=== PATIENT | female | born 2000 | race Caucasian/White ===

== ENCOUNTER → 2020-11-01 08:06 | Outpatient (CLI) | payer OTHER, MEDICAID, SELFPAY ==
[2020-11-01 09:04] LABS: Hematocrit 37.9 % (36-46); Hemoglobin 12.3 g/dL (12.0-16.0)
[2020-11-01 09:37] LABS: Hemoglobin A1C% w Est Avg Glu 5.2 % (4.0-6.0)
[2020-11-01 10:34] LABS: GTT (PREG) 1 Hour PP 50gm Dose 124 mg/dL (76-139)
== END ==
PROVIDERS: PCP Family Medicine; Referring Provider Family Medicine; Visit Provider Family Medicine
DX: Z34.03 Encounter for supervision of normal first pregnancy, third trimester (principal); Z3A.28 28 weeks gestation of pregnancy
CPT/HCPCS: 36415; 82950; 83036; 85014; 85018

== ENCOUNTER → 2020-11-03 12:00 | Outpatient (CLI) | payer OTHER, MEDICAID, SELFPAY ==
--- NOTE | 2020-11-03 12:01 | DI.US.S_ITS ---
PROCEDURE: US OB >= 14 WEEKS FETUS INDICATIONS: ANATOMY OUTSIDE/PRIOR DATING DATA: Last menstrual period (LMP): Not available LMP-based estimated date of delivery (KENNEDY): Not available . First dating scan (date and location): This study . Estimated date of delivery (KENNEDY) from first dating scan: 01/05/21 . TECHNIQUE: Real-time scanning was performed of the fetus, with image documentation and biometric measurements. Endovaginal scanning: Not needed COMPARISON: None. FINDINGS: General: A single living intrauterine gestation is present. Presentation: Vertex. Placenta: Placental position is fundal, without previa. Amniotic fluid index: 20.3 cm, normal range is 5-24 cm. heart rate: 150 beats per minute. Maternal cervical canal: 3.5 cm long. Normal lower limit is 2.5 cm. biometrics: Biparietal diameter: 7.6 cm, 30 weeks 4 days Head circumference: 28.9 cm, 31 weeks 6 days Abdominal circumference: 26.2 cm, 30 weeks 3 days Femur length: 6.0 cm, 31 weeks 0 days Estimated gestational age from initial scan: not applicable. Composite gestational age from present scan: 31 weeks 0 days Estimated weight and percentile: 1630 g Measurement variability for biometric dating: +/- 7 days from 14 weeks to 15 weeks 6 days gestation, +/- 10 days from 16 weeks to 21 weeks 6 days gestation, +/- 2 weeks from 22 weeks to 27 weeks 6 days gestation, +/- 3 weeks for 28 weeks gestation or later. weight reference: 4500 g or EFW >90/95% is considered macrosomia or large for gestational age. EFW <10% is small for gestational age. EFW 5% or less is considered intra-uterine growth restriction. Anatomic survey: Neuro: Ventricles are not seen. Deep vertex presentation. Face: Nose and lips, facial profile are normal. Spine: No evidence for spina bifida. Heart: 4-chambered heart is present, with normal ventricular outflow tracts. Diaphragm: Diaphragm is intact. Stomach: Left-sided stomach is present. Kidneys: No hydronephrosis. Normal is less than 5 mm in 2nd trimester, less than 7 mm in 3rd trimester. Cord: 3-vessel cord has orthotopic insertion. Bladder: Normal in size. Extremities: All 4 extremities identified. IMPRESSION: Single living intrauterine gestation. Calcification of the calvarium precludes visualization of the intracranial content. Estimated current gestational age is 31 weeks 0 days and the delivery date is projected to be centered on 01/05/21. Dictated by: Fred Burt M.D. on 11/03/2020 at 13:43 Approved by: Fred Burt M.D. on 11/03/2020 at 13:47
== END ==
PROVIDERS: PCP Family Medicine; Referring Provider Family Medicine; Visit Provider Family Medicine
DX: Z34.03 Encounter for supervision of normal first pregnancy, third trimester (principal); Z3A.31 31 weeks gestation of pregnancy
CPT/HCPCS: 76811

== ENCOUNTER 2020-12-14 11:54 | Outpatient (CLI) | payer OTHER, MEDICAID, SELFPAY ==
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
== END 2020-12-14 13:10 | disposition home or self-care (01) ==
LOC: LABOR 12:26 → OB 12-15 06:46
PROVIDERS: PCP Family Medicine; Referring Provider Family Medicine; Visit Provider Family Medicine
DX: O36.8130 Decreased fetal movements, third trimester, not applicable or unspecified (principal); R10.9 Unspecified abdominal pain; Z3A.34 34 weeks gestation of pregnancy
CPT/HCPCS: 59025; G0378; G0379

== ENCOUNTER → 2020-12-26 12:21 | Outpatient (CLI) | payer OTHER, MEDICAID, SELFPAY ==
[2020-12-27 13:16] LABS: Strep Grp B PCR POS for Grp B Strep
== END ==
PROVIDERS: PCP Family Medicine; Visit Provider Family Medicine
DX: Z34.03 Encounter for supervision of normal first pregnancy, third trimester (principal); Z3A.36 36 weeks gestation of pregnancy
CPT/HCPCS: 87653

== ENCOUNTER 2021-01-05 01:23 | Inpatient (IN) | payer OTHER, SELFPAY ==
[2021-01-05] MEDS: PENICILLIN G POTASSIUM 5,000,000 UNIT in DEXTROSE 5% IN WATER 250 ML IV (02:34)
[2021-01-05] MEDS: LACTATED RINGERS 1,000 ML 100 ML IV ×4 (02:34→20:19)
[2021-01-05 02:37] LABS: Add Manual Diff / Slide Review NO; Basophils Absolute Auto 0 /uL (0-100); Basophils Percent Auto 0.3 % (0-2); Eosinophils Absolute Auto 0 /uL (0-450); Eosinophils Percent Auto 0.3 % (2-4); Hematocrit 40.3 % (36-46); Hemoglobin 13.2 g/dL (12.0-16.0); Lymphocytes Absolute Auto 1600 /uL (1100-4500); Mean Corpuscular HGB Conc 32.8 % (30-36); Mean Corpuscular Hemoglobin 26.7 PG (26-34); Mean Corpuscular Volume 81.3 fL (80-100); Monocytes Absolute Auto 800 /uL (0-900); Monocytes Percent Auto 5.3 % (3-14); Neutrophils Absolute Auto 12300 /uL (1500-7000); Neutrophils Percent Auto 83.1 % (50-75); Platelet Count 272 X10^3/uL (150-400); Red Blood Cell Count 4.96 X10^6/uL (4.0-5.2); Red Cell Distribution Width 15.3 % (11.6-14.8); White Blood Cell Count 14.8 X10^3/uL (4.5-11.0)
[2021-01-05 03:19] LABS: COVID19 - ADMIT (NP swab/PCR) Negative (Negative)
[2021-01-05] MEDS: fentaNYL 100 MCG/2 ML INJ IV ×3 (03:25→06:37)
[2021-01-05 03:44] VITALS: BP 135/87
[2021-01-05] MEDS: PENICILLIN G POTASSIUM 3,000,000 UNIT/50 ML FROZ.PIGGY 100 UNIT IV ×3 (06:25→14:19)
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
--- NOTE | 2021-01-05 09:51 | PM.OBPNLAB ---
Date/Time Date Patient Seen: 01/05/21 Time Patient Seen: 09:52 Pain Control Pain control: epidural Comments: Just received epidural due to discomfort pain. Tried to place scalp electrode monitor patient to uncomfortable. Difficulty with placement. Epidural is now in place which was difficult due to patient size. scalp electrode now placed with IUPC. Pelvic Exam Dilation (cm): 4 Effacement (%): 80 station: -2 Amniotic membrane status: Ruptured Comments: Thin meconium Contractions Contractions on admission: regular Monitor mode: Internal Contraction pattern: Regular Status Comments: Dopplerable heart tones due to mom's obesity hard time monitoring. scalp electrode is now been placed after mother received epidural and she is much more comfortable. IU CT PC is place for better monitoring patient. Assessment and Plan Assessment: active labor Comments: IUPC and electronic scalp monitor placed. Patient significant obesity hampering ability to monitor.
[2021-01-05] MEDS: FENT 2MCG/ML BUPIV 0.125% EPI 200 MCG/100 ML PLAST..BAG 6 MCG EPIDURAL ×2 (10:13→14:20)
[2021-01-05] MEDS: OXYTOCIN PREMIX 30 UNIT/500 ML PLAST..BAG 200 UNIT IV (10:16)
--- NOTE | 2021-01-05 11:20 | PM.OBPNLAB ---
Date/Time Date Patient Seen: 01/05/21 Time Patient Seen: 11:20 Pain Control Pain control: epidural Pelvic Exam Dilation (cm): 4 Effacement (%): 80 station: -2 Amniotic membrane status: Ruptured Contractions Contractions on admission: regular Monitor mode: Internal Pitocin rate (mU/min): 2 Contraction frequency (min): 4 Contraction duration (min): 1 Contraction pattern: Regular Contraction intensity: Moderate Status status: Category l Heart Rate Baseline: 135 Monitor Accelerations: Present Assessment and Plan Assessment: active labor Plan: continuous present management
[2021-01-05] MEDS: diphenhydrAMINE 50 MG/ML VIAL 25 MG IV (13:15)
--- NOTE | 2021-01-05 17:41 | PM.OBPNLAB ---
Date/Time Date Patient Seen: 01/05/21 Time Patient Seen: 17:41 Pain Control Pain control: tolerating well and epidural Pelvic Exam Dilation (cm): 6 Effacement (%): 80 station: -1 Amniotic membrane status: Ruptured Contractions Monitor mode: Internal Pitocin rate (mU/min): 2 Contraction frequency (min): 4 Contraction pattern: Regular Contraction intensity: Strong/Firm Status status: Category l Monitor Accelerations: Present Monitor Decelerations: Absent Monitor Variability: Moderate Assessment and Plan Assessment: other Plan: Comments: Patient re-evaluated. Patient has been 6-7 cm since 3:00 a.m. today. Minus one station. Still has 80% cervix. Patient has been on Pitocin IUPC and scalp monitor in place. Category 1 tracing. Despite adequate contractions and Pitocin. There has been limited cervical change. Try different position changes. Despite this. There has been failure to progress. Discussed with mom and partner today about operative delivery. Risks of operation including bleeding infection injury to bladder or bowel. Possibility of required blood transfusion. Increased risk of venous thromboembolism. Consent was obtained from the patient and partner.
[2021-01-05] MEDS: CEFAZOLIN 2 GM/100 ML FROZ.PIGGY IV (19:49)
--- NOTE | 2021-01-05 20:03 | SUR.OPER ---
Supine on Padded OR bed, head on pillow, safety belt at thigh, arms secured on padded arm boards at <90 degrees abduction. Bump under right buttock. Legs uncrossed with pillow under knees, gel pad to heels, tape over blanket to lower legs.
--- NOTE | 2021-01-05 20:11 | SUR.OPER ---
Viable female delivered at 20:04. Cord blood vials x2 and placenta sent with L&D RN.
[2021-01-05] MEDS: ACETAMINOPHEN IV 1,000 MG/100 ML VIAL 400 MG IV (20:12)
--- NOTE | 2021-01-05 20:46 | PM.PROC.1 ---
Procedures Date/Time Date of procedure: 01/05/21 Time of procedure: 20:46 General Procedure description: Procedure: Lower segment transverse section Consent: Verbal and written informed consent were obtained from the patient placed on the chart. Indications: 20-year-old G1 para 0 with failure to progress baby and OT position Findings: Normal uterus normal ovaries Female Apgars 8 and 9 OT position Anesthesia: Spinal Surgeon: Dr. Simon Wong Nuclear Scientist: Dr. kashif Crowder Estimated blood loss: 500 mL Drains: Gallardo to gravity. IV fluids: 1 L crystalloid Description of procedure: The patient was brought to the operating room after her spinal epidural, preparation, and Gallardo had been performed. Due to the mother's morbid obesity. Patient had additional taping to the abdomen to assist with proper surgical technique. The abdomen was prepped and draped in tested for for analgesia. When it was found to be adequate, a lower abdominal Pfannenstiel incision was made with first with a knife and cared down to the fascia with a second knife. The fascia was incised in the midline and extended laterally with a knife. Bleeding points were clamped with hemostats and Bovie coagulated. The rectus muscles were by blunt dissection. The rectus muscles were divided in the midline and the peritoneum was grasped with hemostats and carefully entered with Kee scissors. The incision was extended bilaterally. The bladder blade was then placed. The vesicoperitoneum was grasped with smooth pickups, entered with Metzenbaum scissors, and extended laterally. The bladder flap was created by gently blunt dissection and placed behind the bladder blade. The lower uterine segment was noted to be thin was carefully incised with the scalpel and extended laterally with the fingers. A live infant was found to be in the occiput transverse position. The head was then easily elevated with the hand. The baby was then suctioned and cried immediately, and was handed to the waiting attendant. The placenta was delivered manually. The uterus was explored with a wet lap sponge and found to be clear membranes. The first layer of the uterine closure was with running locking #1 chromic catgut suture. The second layer with an imbricating #1 chromic catgut suture. Hemostasis was carefully checked and found to be satisfactory. The bladder flap was closed with a running 2-0 chromic catgut suture. The fallopian tubes and ovaries were inspected and to be found normal bilaterally. After sponge and needle counts were found to be correct the peritoneum was closed with 2-0 chromic catgut suture. Rectus muscles were approximated in the lower midline. The fascia was closed with a 2 running 0 Vicryl from lateral to midline. The subcutaneous tissue was approximated with interrupted 2.0 plain gut. Bleeding points were Bovie and coagulated. The subcutaneous tissue was approximated with 20 plain gut suture. The skin was closed with 1-0 running subcuticular stitch. Urinary output was adequate and normal patient left to the recovery room in good condition. Dr. Crowder was in the operating room with me during the entire procedure. She was there to do to assist due to patient's morbid obesity she helped with the incision delivering the baby and suturing 1 side. She also helped with positioning of the patient.
[2021-01-05 20:48] VITALS: BP 144/73; PULSE 89; RESP 19; TEMP 38.6; O2SAT 99
[2021-01-05 20:53] VITALS: BP 162/70; PULSE 85; RESP 20; O2SAT 99
[2021-01-05 20:58] VITALS: BP 136/72; PULSE 84; RESP 19; O2SAT 98
[2021-01-05 21:03] VITALS: BP 151/79; PULSE 90; RESP 15; TEMP 37.2; O2SAT 98
--- NOTE | 2021-01-05 21:21 | SUR.PHASEI ---
Pt arrived awake from OR. Fundus firm. bright red lochia with few clots massaged out. Pt cleaned up. Dr Rodas removed epidural at bedside without isssue. Pt able to wiggle toes but not bend or move knees/legs. Denied pain when not moving, pain increased with fundus massage and sitting up in bed. Taken to with bee BETANCOURT. Report to Maria Fernanda BETANCOURT.
[2021-01-05] MEDS: miSOPROStoL 200 MCG TABLET 400 MCG SL (23:30)
[2021-01-06] MEDS: MORPHINE 2 MG/ML INJ IV ×2 (00:05→20:35)
[2021-01-06] MEDS: KETOROLAC 30 MG/ML VIAL IV ×3 (02:09→14:21)
[2021-01-06] MEDS: diphenhydrAMINE 50 MG/ML VIAL 25 MG IV (02:10)
[2021-01-06] MEDS: OXYCODONE/ACETAMINOPHEN 5/325 TABLET 2 TAB PO ×4 (05:01→18:36)
[2021-01-06 07:56] LABS: Add Manual Diff / Slide Review NO; Basophils Absolute Auto 0 /uL (0-100); Basophils Percent Auto 0.3 % (0-2); Eosinophils Absolute Auto 0 /uL (0-450); Eosinophils Percent Auto 0.2 % (2-4); Hematocrit 35.1 % (36-46); Hemoglobin 11.4 g/dL (12.0-16.0); Lymphocytes Absolute Auto 700 /uL (1100-4500); Lymphocytes Percent Auto 4.6 % (25-40); Mean Corpuscular HGB Conc 32.4 % (30-36); Mean Corpuscular Hemoglobin 26.8 PG (26-34); Mean Corpuscular Volume 82.6 fL (80-100); Monocytes Absolute Auto 700 /uL (0-900); Neutrophils Absolute Auto 13400 /uL (1500-7000); Neutrophils Percent Auto 89.9 % (50-75); Platelet Count 197 X10^3/uL (150-400); Red Blood Cell Count 4.25 X10^6/uL (4.0-5.2); Red Cell Distribution Width 15.3 % (11.6-14.8); White Blood Cell Count 14.9 X10^3/uL (4.5-11.0)
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
[2021-01-06] MEDS: DOCUSATE 250 MG CAPSULE PO (08:41)
[2021-01-06] MEDS: PRENATAL VIT,CALC/IRON/FOLIC 1 TABLET 1 TAB PO (08:42)
[2021-01-06] MEDS: LACTATED RINGERS 1,000 ML 100 ML IV (09:46)
[2021-01-06 18:36] VITALS: TEMP 37.3
[2021-01-06 20:35] VITALS: TEMP 39.2
[2021-01-06 21:38] LABS: Bacteria Urine None Seen
[2021-01-06 21:46] LABS: Appearance Urine UA SL CLOUDY; Bilirubin Urine UA NEGATIVE (NEGATIVE); Color Urine UA YELLOW; Glucose Urine UA NEGATIVE (Negative); Ketones Urine UA NEGATIVE (NEGATIVE); Leukocyte Esterase Urine UA TRACE (NEGATIVE); Nitrite Urine UA NEGATIVE (Negative); Occult Blood Urine UA 3+ (Negative); Protein Urine UA NEGATIVE (Negative); Urobilinogen Urine UA 0.2 E.U./dL (0.2)
[2021-01-06 22:09] LABS: Culture Indicated Urine Specimen Cultured; RBC Urine 30-100/HPF (0-5/HPF); Squamous Epithelial Cell Urine 1-5 /HPF (0-5/HPF); WBC Urine 1-5/HPF (0-5/HPF)
[2021-01-06 22:11] VITALS: TEMP 38.1
[2021-01-06] MEDS: OXYCODONE IR 10 MG TABLET PO (22:11)
[2021-01-06 22:13] VITALS: TEMP 38.1
[2021-01-06] MEDS: IBUPROFEN 600 MG TABLET PO (22:13)
[2021-01-06] MEDS: LANOLIN OINT 7 GM 1 APPLIC TOP (22:26)
[2021-01-06 22:27] VITALS: TEMP 38.1
[2021-01-06] MEDS: ACETAMINOPHEN 325 MG TABLET 650 MG PO (22:27)
[2021-01-06 22:30] LABS: Add Manual Diff / Slide Review NO; Basophils Absolute Auto 0 /uL (0-100); Basophils Percent Auto 0.3 % (0-2); Eosinophils Absolute Auto 0 /uL (0-450); Eosinophils Percent Auto 0.4 % (2-4); Hematocrit 33.7 % (36-46); Hemoglobin 10.9 g/dL (12.0-16.0); Lymphocytes Absolute Auto 800 /uL (1100-4500); Lymphocytes Percent Auto 6.6 % (25-40); Mean Corpuscular HGB Conc 32.2 % (30-36); Mean Corpuscular Hemoglobin 26.6 PG (26-34); Mean Corpuscular Volume 82.6 fL (80-100); Monocytes Absolute Auto 600 /uL (0-900); Monocytes Percent Auto 4.9 % (3-14); Neutrophils Absolute Auto 10400 /uL (1500-7000); Neutrophils Percent Auto 87.8 % (50-75); Platelet Count 200 X10^3/uL (150-400); Red Blood Cell Count 4.08 X10^6/uL (4.0-5.2); Red Cell Distribution Width 15.5 % (11.6-14.8); White Blood Cell Count 11.9 X10^3/uL (4.5-11.0)
[2021-01-07 02:10] VITALS: TEMP 36.8
[2021-01-07] MEDS: OXYCODONE IR 10 MG TABLET PO ×4 (02:10→14:03)
[2021-01-07 03:50] VITALS: TEMP 37.1
[2021-01-07] MEDS: IBUPROFEN 600 MG TABLET PO ×2 (03:50→09:49)
[2021-01-07] MEDS: ACETAMINOPHEN 325 MG TABLET 650 MG PO ×2 (03:52→11:48)
[2021-01-07 05:53] VITALS: TEMP 36.8
[2021-01-07] MEDS: PRENATAL VIT,CALC/IRON/FOLIC 1 TABLET 1 TAB PO (09:49)
[2021-01-07] MEDS: DOCUSATE 250 MG CAPSULE PO (09:49)
[2021-01-07 11:48] VITALS: TEMP 36.2
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
== END 2021-01-07 17:45 | disposition home or self-care (01) | DRG 540 ==
PROVIDERS: Admitting Provider Family Medicine; PCP Family Medicine; Referring Provider Family Medicine; Visit Provider Family Medicine
PROC: 10D00Z1 Extraction of Products of Conception, Low, Open Approach (ICD-10-PCS; CPT 59514; principal; 2021-01-05 19:30)
DX: O99.824 Streptococcus B carrier state complicating childbirth (principal); E66.01 Morbid (severe) obesity due to excess calories; O60.14X0 Preterm labor third trimester with preterm delivery third trimester, not applicable or unspecified; Z3A.37 37 weeks gestation of pregnancy; Z37.0 Single live birth; O99.214 Obesity complicating childbirth; O99.344 Other mental disorders complicating childbirth; F41.0 Panic disorder [episodic paroxysmal anxiety]; F43.10 Post-traumatic stress disorder, unspecified; O64.8XX0 Obstructed labor due to other malposition and malpresentation, not applicable or unspecified; Z20.822 Contact with and (suspected) exposure to COVID-19; O77.0 Labor and delivery complicated by meconium in amniotic fluid
CPT/HCPCS: 01967; 01968; 36415; 59050; 59514; 81001; 84112; 85025; 86850; 86900; 86901; 87040; 87077; 87086; 87186; 87635; G0379; J0131; J0690; J1200; J1885; J2270; J2274; J2540; J2590; J2765; J3010; S0191